=== PATIENT | female | born 1990 | race Hispanic/Latino ===

== ENCOUNTER 2024-02-28 22:53 | Emergency (ER) | payer OTHER ==
[~2024-02-28] VITALS: Ht 152.4 cm; Wt 68.0 kg
[2024-02-28 22:54] VITALS: BP 123/76; PULSE 96; RESP 16; TEMP 97.5
[2024-02-28 23:38] LABS: BASOPHILS # (AUTO) 0.04 K/uL (0.00-0.20); BASOPHILS % (AUTO) 0.3 % (0.0-5.0); EOSINOPHILS % (AUTO) 0.8 % (0.0-8.0); HEMATOCRIT 34.8 % (36-48); IMMATURE GRANULOCYTE ABSOLUTE 0.04 K/uL (0-1); LYMPHOCYTES # (AUTO) 3.5 K/uL (1.0-4.8); LYMPHOCYTES % (AUTO) 27.8 % (21.0-51.0); MEAN CORPUSCULAR HEMOGLOBIN 28.3 pg (27.0-33.0); MEAN CORPUSCULAR HGB CONC 31.3 g/dL (32.0-36.0); MEAN CORPUSCULAR VOLUME 90.4 fL (79-99); MONOCYTES # (AUTO) 0.8 K/uL (0.1-1.0); MONOCYTES % (AUTO) 6.5 % (3.0-13.0); NEUTROPHILS % (AUTO) 64.3 % (40.0-77.0); PLATELET COUNT (AUTO) 446 K/uL (130-400); RED BLOOD CELL COUNT(AUTO) 3.85 MIL/uL (4.00-5.50); RED CELL DISTRIBUTION WIDTH 12.6 % (11.0-15.5); WHITE BLOOD COUNT (AUTO) 12.5 K/uL (4.8-10.8)
[2024-02-28 23:46] LABS: POTASSIUM 3.3 mmol/L (3.5-5.1)
[2024-02-28 23:49] LABS: INR 0.95 (0.85-1.15); PROTHROMBIN TIME 10.3 SEC (9.6-11.6)
[2024-02-28 23:50] LABS: PARTIAL THROMBOPLASTIN TIME 25.5 SEC (26.3-35.5)
[2024-02-29] MEDS ORDERED: CEPH500B PO (00:08)
--- NOTE | 2024-02-29 00:08 | ERN ---
General Chief Complaint: OB<20 weeks gest. Stated Complaint: VAGINAL BLEEDING Time Seen by MD: 22:57 Source: patient History of Present Illness Initial Comments PATIENT IS A 33-YEAR-OLD FEMALE COMING IN TO BE EVALUATED FOR VAGINAL BLEED. PATIENT STATES THAT SHE WAS A AB0 TO WITH THIS . PATIENT WAS EVALUATED BY HER OBGYN IN HIS SCHEDULED FOR A D&C ON SUNDAY. PATIENT DECIDED TO COME IN TO BE FURTHER EVALUATED AFTER SHE PRESENTED WITH INCREASING ABDOMINAL CRAMPING. Allergies: Coded Allergies: No Known Drug Allergies (Unverified Allergy, Unknown, 02/27/24) Home Meds No Active Prescriptions or Reported Meds Past Medical History Past Medical History: No Pertinent History Past Surgical History: Cholecystectomy Female( History) LMP: Dec 30, 2023 : 5 Para: 3 Aborts: 2 ROS Dictation CONSTITUTIONAL: NO CHILLS, NO FEVER, NO WEAKNESS, NO DIAPHORESIS, NO MALAISE. HEAD/FACE: NO SIGNS OF TRAUMA. EENT: NO EYE PAIN, NO BLURRED VISION, NO TEARING, NO DOUBLE VISION, NO EAR PAIN, NO EAR DISCHARGE, NO NOSE PAIN, NO NASAL CONGESTION, NO THROAT PAIN, NO THROAT SWELLING, NO MOUTH PAIN. RESPIRATORY: NO COUGH, NO ORTHOPNEA, NO SOB, NO STRIDOR, NO WHEEZING. CARDIOVASCULAR: NO CHEST PAIN, NO EDEMA, NO PALPITATIONS, NO SYNCOPE. GASTROINTESTINAL/ABDOMINAL: ABDOMINAL PAIN, NO CONSTIPATION, NO DIARRHEA, NO NAUSEA, NO VOMITING. GENITOURINARY: ABNORMAL DISCHARGE, NO DYSURIA, NO FREQUENT URINATION, NO HEMATURIA. NO COMPLAINTS OF PAIN IN THE GENITALS. MUSCULOSKELETAL: NO BACK PAIN, NO GOUT, NO JOINT PAIN, NO JOINT SWELLING, NO MUSCLE PAIN, NO MUSCLE STIFFNESS, NO NECK PAIN. INTEGUMENTARY: NO CHANGE IN COLOR, NO CHANGE IN HAIR/NAILS, NO DRYNESS, NO LESION, NO LUMPS, NO RASH. NEUROLOGICAL/PSYCH: NO ANXIETY, NOT DEPRESSED, NO EMOTIONAL PROBLEM, NO HEADACHE, NO NUMBNESS, NO PRE-EXISTING DEFICIT, NO HISTORY OF SEIZURES, NO TREMORS, NO WEAKNESS. HEMATOLOGIC/LYMPHATIC: NOT ANEMIC, NO HISTORY OF BLOOD CLOTS, NO APPARENT BLEEDING, NO BRUISING, GLANDS NOT SWOLLEN. ALL SYSTEMS NEGATIVE, EXCEPT NOTED. Physical Exam Physical Exam Dictation VITAL SIGNS: REVIEWED. GENERAL APPEARANCE: ALERT, ORIENTED X3, NO ACUTE DISTRESS, OBESE. HEAD AND FACE: NON-TRAUMATIC. EYES: PERRL, PINK CONJUNCTIVAS, EYELID NO TRAUMA, ANTERIOR CHAMBER CLEAR. EARS: PINNAS INTACT AND NO SIGNS OF TRAUMA OR ERYTHEMA. EAR CANALS CLEAR AND NO DISCHARGE. TMS NO ERYTHEMA. NOSE: NO DISCHARGE, NO BLEEDING. OROPHARYNX: MOUTH NORMAL, TEETH NO CARIES, TONGUE PINK. PHARYNX CLEAR, NO ERYTHEMA. TONSILS NO EXUDATES, NO ABSCESSES NOTED. MUCOUS MEMBRANE MOIST. NECK: SUPPLE, NON-TENDER, NO THYROMEGALY, NO MASSES, NO JVD, NO BRUITS. BREAST: DEFERRED. CHEST: NO TENDERNESS, NO CREPITUS, NO PARADOXICAL MOVEMENT, NO RETRACTIONS. LUNGS: CLEAR, WELL-VENTILATED, SYMMETRIC, NO RALES, NO WHEEZING, NO RHONCHI, NO STRIDOR, GOOD BREATH SOUNDS BILATERALLY. HEART: REGULAR RATE, REGULAR RHYTHM, NO MURMUR, NO GALLOPS. VASCULAR: NO PERIPHERAL EDEMA. ABDOMEN: SOFT, POSITIVE BOWEL SOUNDS, NONDISTENDED, NO GUARDING, NONTENDER, NO R EBOUND, NO MASSES NO HEPATOMEGALY, NO SPLENOMEGALY, NO ASTUDILLO'S SIGN, NO HERNIAS. RECTAL: DEFERRED. GENITAL: DEFERRED. NEUROLOGICAL: NORMAL SPEECH, GROSS MOTOR FUNCTION INTACT, GROSS SENSORY FUNCTION INTACT. MUSCULOSKELETAL: NECK NONTENDER, FULL RANGE OF MOTION, BACK NONTENDER, FULL RANGE OF MOTION. EXTREMITIES: NONTENDER, FULL RANGE OF MOTION. SKIN: COLOR PINK, DRY, NO TURGOR, NO RASH, NO LACERATIONS, NO ABRASIONS, NO CONTUSIONS. LYMPHATICS: DEFERRED. Results Laboratory and Microbiology Lab and Micro Result Laboratory Tests Test 02/28/24 23:08 White Blood Count 12.5 K/uL (4.8-10.8) H Red Blood Count 3.85 MIL/uL (4.00-5.50) L Hemoglobin 10.9 g/dL (12.0-16.0) L Hematocrit 34.8 % (36-48) L Mean Corpuscular Volume 90.4 fL (79-99) Mean Corpuscular Hemoglobin 28.3 pg (27.0-33.0) Mean Corpuscular Hemoglobin Concent 31.3 g/dL (32.0-36.0) L Red Cell Distribution Width 12.6 % (11.0-15.5) Platelet Count 446 K/uL (130-400) H Mean Platelet Volume 9.3 fL (7.5-10.5) Immature Granulocyte % (Auto) 0.3 % (0-1) Neutrophils (%) (Auto) 64.3 % (40.0-77.0) Lymphocytes (%) (Auto) 27.8 % (21.0-51.0) Monocytes (%) (Auto) 6.5 % (3.0-13.0) Eosinophils (%) (Auto) 0.8 % (0.0-8.0) Basophils (%) (Auto) 0.3 % (0.0-5.0) Neutrophils # (Auto) 8.0 K/uL (1.8-7.7) H Lymphocytes # (Auto) 3.5 K/uL (1.0-4.8) Monocytes # (Auto) 0.8 K/uL (0.1-1.0) Eosinophils # (Auto) 0.10 K/uL (0.00-0.70) Basophils # (Auto) 0.04 K/uL (0.00-0.20) Absolute Immature Granulocyte (auto 0.04 K/uL (0-1) Nucleated Red Blood Cells 0.0 % (0.0-0.19) Prothrombin Time 10.3 SEC (9.6-11.6) Prothromb Time International Ratio 0.95 (0.85-1.15) Activated Partial Thromboplast Time 25.5 SEC (26.3-35.5) L Sodium Level 137 mmol/L (136-145) Potassium Level 3.3 mmol/L (3.5-5.1) L Chloride Level 101 mmol/L (101-111) Carbon Dioxide Level 29 mmol/L (21-32) Blood Urea Nitrogen 14 mg/dL (7-18) Creatinine 1.0 mg/dL (0.5-1.0) Glomerular Filtration Rate Calc 76 mL/min (>90) Random Glucose 94 mg/dL (70-105) Total Calcium 9.2 mg/dL (8.5-10.1) Human Chorionic Gonadotropin, Quant 879 mIU/mL (0-5) H Labs Reviewed?: Yes EKG/XRAY/US/CT/MRI Ultrasound Comment OB ULTRASOUND-NO IUP SEEN MDM MDM: DIFFERENTIAL DIAGNOSIS: MISCARRIAGE, VAGINAL BLEED, PATIENT IS A 33-YEAR-OLD FEMALE COMING IN TO BE EVALUATED FOR VAGINAL BLEED. PER PATIENT SHE WAS SCHEDULED FOR A D&C ON SUNDAY BUT DECIDED TO COME IN TO BE EVALUATED AFTER SHE HAD INCREASED CRAMPING. ULTRASOUND DID NOT SHOW AN IUP. PATIENT WILL BE DISCHARGED WITH A DIAGNOSIS OF MISCARRIAGE I ADVISED HER APPROPRIATE FOLLOW UP WITH OB FOR FURTHER EVALUATION. PATIENT WILL BE D ISCHARGED IN STABLE CONDITION. ED Course Orders Procedure Category Date Status Time Cbc With Differential LAB 02/28/24 Complete 22:57 Basic Metabolic Panel LAB 02/28/24 Complete 22:57 Hcg,Quantitative LAB 02/28/24 Complete 22:57 Pt And Ptt LAB 02/28/24 Complete 22:57 Us Ob <14 Weeks US 02/28/24 Taken 23:15 Vital Signs Date Time Temp Pulse Resp B/P (MAP) Pulse Ox O2 Delivery O2 Flow Rate FiO2 02/28/24 22:54 97.5 96 16 123/76 98 Room Air DX & DISP Disposition: Discharge Departure Impression: Primary Impression: Miscarriage Condition: Stable Scripts Cephalexin Monohydrate (Keflex) 500 Mg Cap 1 CAP PO TID for 10 Days, #30 CAP 0 Refills Prov: ELMER JUNIOR MD 02/29/24 Additional Instructions: FOLLOW-UP WITH PRIMARY CARE PROVIDER IN 1 TO 2 DAYS. TAKE MEDICATIONS DIRECTED HERE IN THE EMERGENCY ROOM. OKAY TO CONTINUE HOME MEDICATIONS UNLESS OTHERWISE DISCUSSED DURING YOUR VISIT IN THE EMERGENCY ROOM TODAY. RETURN TO YOUR NEAREST EMERGENCY ROOM IF SYMPTOMS WORSEN OR IF THERE IS NO IMPROVEMENT. CALL 911 IF YOU NEED IMMEDIATE ASSISTANCE. TAKE TYLENOL [id number] NEEDED AND IF NO CONTRAINDICATIONS ARE PRESENT. INCREASE ORAL HYDRATION. A WOUND CULTURE OR URINE CULTURE WAS ORDERED HERE IN THE EMERGENCY ROOM DEPARTMENT PLEASE FOLLOW-UP WITH PRIMARY CARE PROVIDER AND ADVISE THEM TO GET REPEAT PORTS FROM OUR FACILITY. IF YOU HAD ANY GENNA WRAP/SPLINTS THAT WERE APPLIED HERE, PLEASE DO NOT REMOVE THEM UNTIL YOU SEE YOUR PRIMARY CARE OR SPECIALTY. REFERRALS: Referrals: GEORGINA RHODES (PCP) Time of Disposition: 00:07 ELMER JUNIOR MD Feb 29, 2024 00:08
--- NOTE | 2024-02-29 01:08 | HMCIMG ---
US OB <14 WEEKS HISTORY: Abdominal pain COMPARISON: None TECHNIQUE: Obstetrical ultrasound study was performed. FINDINGS: The uterus measures 10.1 x 5.1 x 5.8 centimeter. Right ovary measures 2.8 x 1.9 x 2.7 centimeter. Left ovary measures 3.5 x 3.2 x 3.4 centimeter. There are bilateral ovarian cysts and follicles with the largest on the left measuring 2.5 cm. No evidence of intrauterine gestational sac is seen. In a patient with positive test, differential diagnosis would include early versus ectopic versus missed . Beta-hCG correlation is recommended. Clinical correlation is recommended. Endometrial thickness is 2 cm. No fluid is seen in the cul-de-sac. IMPRESSION: 1. No evidence of intrauterine gestational sac is seen. In a patient with positive test, differential diagnosis would include early versus ectopic versus missed . Beta-hCG correlation is recommended. Clinical correlation is recommended. Endometrial thickness is 2 cm.
== END 2024-02-29 00:31 | disposition home or self-care (01) ==
LOC: EDH 22:53
DX: O03.9 Complete or unspecified spontaneous abortion without complication (principal); R10.2 Pelvic and perineal pain; Z90.49 Acquired absence of other specified parts of digestive tract
CPT/HCPCS: 36415; 76801; 80048; 84702; 85025; 85610; 85730; 99284

== ENCOUNTER 2024-03-03 05:50 | Day surgery (SDC) | payer OTHER ==
[2024-02-27 14:58] LABS: BASOPHILS # (AUTO) 0.02 K/uL (0.00-0.20); BASOPHILS % (AUTO) 0.3 % (0.0-5.0); EOSINOPHILS # (AUTO) 0.08 K/uL (0.00-0.70); EOSINOPHILS % (AUTO) 1.1 % (0.0-8.0); HEMATOCRIT 35.3 % (36-48); IMMATURE GRANULOCYTE ABSOLUTE 0.02 K/uL (0-1); LYMPHOCYTES # (AUTO) 2.5 K/uL (1.0-4.8); MEAN CORPUSCULAR HEMOGLOBIN 27.8 pg (27.0-33.0); MEAN CORPUSCULAR HGB CONC 30.9 g/dL (32.0-36.0); MEAN CORPUSCULAR VOLUME 90.1 fL (79-99); MONOCYTES # (AUTO) 0.5 K/uL (0.1-1.0); MONOCYTES % (AUTO) 6.7 % (3.0-13.0); NEUTROPHILS # (AUTO) 4.2 K/uL (1.8-7.7); NEUTROPHILS % (AUTO) 57.6 % (40.0-77.0); PLATELET COUNT (AUTO) 452 K/uL (130-400); RED BLOOD CELL COUNT(AUTO) 3.92 MIL/uL (4.00-5.50); RED CELL DISTRIBUTION WIDTH 12.6 % (11.0-15.5); WHITE BLOOD COUNT (AUTO) 7.3 K/uL (4.8-10.8)
[2024-02-27 15:11] LABS: ALBUMIN 3.5 g/dL (3.5-5.0); BILIRUBIN,TOTAL 0.3 mg/dL (0.2-1.0); CREATININE 0.6 mg/dL (0.5-1.0); POTASSIUM 3.6 mmol/L (3.5-5.1); TOTAL PROTEIN, SERUM 7.7 g/dL (6.0-8.3)
[2024-02-27 15:43] VITALS: BP 115/67; PULSE 80; RESP 18; TEMP 97.9
[~2024-03-03] VITALS: Ht 152.4 cm; Wt 70.9 kg
[~2024-03-03 05:50] MED LIST: CEPH500B PO
[2024-03-03 06:25] VITALS: BP 115/79; PULSE 73; RESP 14; TEMP 97.5
[2024-03-03] MEDS: LACTATED RINGERS 1000ML 1,000 ML IV ONE (06:36)
[2024-03-03] MEDS: ceFAZolin SODIUM 2 GM VIAL ONE (06:36)
[2024-03-03] MEDS ORDERED: LIDOCAINE PF 100MG/5ML (2%) SYRINGE 5ML ONE (06:58)
[2024-03-03] MEDS ORDERED: dexaMETHasone SOD PHOSPHATE 10MG/ML 1ML VIAL ONE (06:58)
[2024-03-03] MEDS ORDERED: GLYCOPYRROLATE 0.2 MG/ML 5 ML VIAL ONE (06:59)
[2024-03-03] MEDS ORDERED: SUCCINYLCHOLINE CHLORIDE 20 MG/ML 10 ML VIAL ONE (06:59)
[2024-03-03] MEDS ORDERED: rocuRONium bROMide 10MG/1ML 5ML VL ONE (06:59)
[2024-03-03] MEDS ORDERED: proPOFol 10 MG/ML 20ML VIAL IV ONE (06:59)
[2024-03-03] MEDS ORDERED: ondanSETRON 4MG INJ ONE (06:59)
[2024-03-03] MEDS ORDERED: NEOSTIGMINE METHYLSULFATE 1MG/ML IV ONE (06:59)
[2024-03-03] MEDS ORDERED: FENTanyl CITRate PF 50 MCG/1 ML 2ML VIAL ONE (07:00)
[2024-03-03] MEDS ORDERED: MIDAZOLAM HCL 1 MG/ML 2ML VIAL ONE (07:00)
== END 2024-03-03 08:45 | disposition home or self-care (01) ==
LOC: DAH 05:50
PROVIDERS: ATTEND Obstetrics & Gynecology
DX: O02.1 Missed abortion (principal); Z90.49 Acquired absence of other specified parts of digestive tract; Z79.01 Long term (current) use of anticoagulants; Z79.899 Other long term (current) drug therapy; Z53.8 Procedure and treatment not carried out for other reasons
CPT/HCPCS: 86900 ×2; 80053; 84703; 85025; 86850 ×2; 86901 ×2; 36415 ×2; A6260; J7120; J1100; J0330; J2003; J2704; J0690; A4215; A4222; A4221; A4663; A4216; A4510; A4223 ×2; A4600; J2250; J2405; J2710; J3010; J3490

== ENCOUNTER 2024-05-01 20:07 | Emergency (ER) | payer OTHER ==
[~2024-05-01] VITALS: Ht 152.4 cm; Wt 73.0 kg
--- NOTE | 2024-05-01 20:21 | ERN ---
ED Note History of Present Illness Stated Complaint: HEADACHES X 5 DAYS Chief Complaint: Headache Time Seen by MD: 20:09 Dictation: PATIENT IS A 34-YEAR-OLD FEMALE HERE WITH BILATERAL FRONTAL HEADACHE THAT SHE DESCRIBES PRESSURE, ACHY FOR FIVE DAYS. NO FEVER NO CHILLS NO NAUSEA VOMITING. STATES SHE HAD A VIRAL INFECTION LAST WEEK WAS TREATED BY . SHE STATES EVERY SHE HAS NOT BEEN ABLE TO GET RID OF THE HEADACHE. NO NECK PAIN. NO RASH. Allergies: Coded Allergies: No Known Drug Allergies (Unverified Allergy, Unknown, 02/27/24) Home Meds No Active Prescriptions or Reported Meds Past Medical History Past Medical History: No Pertinent History Surgical History: Cholecystectomy History: Not Applicable : 5 Para: 3 Aborts: 2 RN Note Reviewed/Agreed w/PFSH: Yes Review of System Dictation CONSTITUTIONAL: NEGATIVE EXCEPT FOR HPI HEAD/FACE: NEGATIVE EXCEPT FOR HPI EENT: NEGATIVE EXCEPT FOR HPI BILATERAL FRONTAL SINUS HEADACHE RESPIRATORY: NEGATIVE EXCEPT FOR HPI GASTROINTESTINAL/ABDOMINAL: NEGATIVE EXCEPT FOR HPI GENITOURINARY: NEGATIVE EXCEPT FOR HPI MUSCULOSKELETAL: NEGATIVE EXCEPT FOR HPI INTEGUMENTARY: NEGATIVE EXCEPT FOR HPI NEUROLOGICAL/PSYCH: NEGATIVE EXCEPT FOR HPI HEMATOLOGIC/LYMPHATIC: NEGATIVE EXCEPT FOR HPI ALL SYSTEMS NEGATIVE, EXCEPT NOTED ABOVE. 13 POINT REVIEW OF SYSTEMS ASSESSED AND ALL NEGATIVE EXCEPT FOR ABOVE. Initial Vital Sign VS Vital Signs Date Time Temp Pulse Resp B/P (MAP) Pulse Ox O2 Delivery O2 Flow Rate FiO2 05/01/ 20:18 99.0 90 20 131/85 99 Room Air Physical Exam Dictation VITAL SIGNS REVIEWED GENERAL APPEARANCE: ALERT, ORIENTED X 3, NO ACUTE DISTRESS, WELL DEVELOPED, NOURISHED. HEAD AND FACE: NON-TRAUMATIC. MODERATE BILATERAL FRONTAL TENDERNESS WITH PALPATION GREATER ON THE RIGHT EYES: PERRL, PINK CONJUNCTIVAS, EYELID NO TRAUMA, ANTERIOR CHAMBER WITH ARCUS SENILIS. EARS: PINNAS INTACT AND NO SIGNS OF TRAUMA OR ERYTHEMA EAR CANALS CLEAR AND NO DISCHARGE TM NO ERYTHEMA NOSE: NO DISCHARGE, NO BLEEDING. OROPHARYNX: MOUTH NORMAL, TONGUE PINK, PHARYNX CLEAR,NO ERYTHEMA, TONSILS NO EXUDATES, NO ABSCESSES NOTED, MUCOUS MEMBRANE MOIST NECK: SUPPLE, NON-TENDER, NO THYROMEGALY, NO MASSES, NO JVD, NO BRUITS BREAST:DEFERRED CHEST:NO TENDERNESS, NO CREPITUS, NO PARADOXICAL MOVEMENT, NO RETRACTIONS LUNGS:CLEAR, WELL-VENTILATED, SYMMETRIC, NO RALES, NO WHEEZING, NO RHONCHI, NO STRIDOR, GOOD BREATH SOUNDS BILATERALLY HEART: REGULAR RATE, REGULAR RHYTHM, NO MURMUR, NO GALLOPS VASCULAR: NO PERIPHERAL EDEMA, ABDOMEN: SOFT, POSITIVE BOWEL SOUNDS, NONDISTENDED, NO GUARDING, NONTENDER, NO REBOUND, NO MASSES NO HEPATOMEGALY, NO SPLENOMEGALY, NO ASTUDILLO'S SIGN, NO HERNIAS. RECTAL: DEFERRED GENITAL: DEFERRED NEUROLOGICAL: NORMAL SPEECH, MOTOR FUNCTION INTACT, SENSORY FUNCTION INTACT MUSCULOSKELETAL: NECK NONTENDER, FULL RANGE OF MOTION, BACK NONTENDER, FULL RANGE OF MOTION, EXTREMITIES: NONTENDER, FULL RANGE OF MOTION SKIN: COLOR PINK, DRY, NO TURGOR, NO RASH, NO LACERATIONS, NO ABRASIONS, NO CONTUSIONS. LYMPHATIC: DEFERRED Results (Laboratory/Radiology) Labs Reviewed?: Yes ED Course ED Course Orders Procedure Category Date Status Time Ketorolac 60mg/2ml PHA 05/01/24 Complete (Toradol 60mg/2ml) 20:30 Dexamethasone 4mg/Ml PHA 05/01/24 Complete 1ml Vial (Dexametha 20:30 Current Medications Medications (Trade) Dose Ordered Sig/Nancy Route PRN Reason Start Time Stop Time Status Last Admin Dose Admin Dexamethasone Sodium Phosphate (dexaMETHasone 4MG/ML 1ML VIAL) 8 mg ONCE ONCE IM 05/01/24 20:30 05/01/24 20:31 DC Ketorolac Tromethamine (toRADol 60MG/ 2ML) 60 mg ONCE ONCE IM 05/01/24 20:30 05/01/24 20:31 DC Vital Signs Date Time Temp Pulse Resp B/P (MAP) Pulse Ox O2 Delivery O2 Flow Rate FiO2 05/01/24 20:18 99.0 90 20 131/85 99 Room Air 2055 patient discharged home after pain is being relieved with Decadron and ketorolac. She will be discharged home with prednisone and ibuprofen for the next three days told to see her primary care doctor for follow up. Medical Decision Making MDM Medical discharge making based on empiric treatment for sinus headache. Discharged home with ibuprofen and prednisone Told to see her primary care doctor in 1-2 days DX & DISP Disposition: Discharge Departure Impression: Primary Impression: Sinus headache Condition: Stable Scripts Prednisone (Prednisone) 20 Mg Tablet 40 MG PO DAILY for 3 Days, #6 TAB Prov: RAHEEM FALK MANAGER STRATEGY 05/01/24 Ibuprofen (Ibuprofen 800 mg Tab) 800 Mg Tab 800 MG PO Q8H PRN for fever or pain, #30 TAB 0 Refills Prov: RAHEEM FALK NP 05/01/24 Additional Instructions: Follow-up with primary care provider in 1 to 2 days. Take medications as directed here in the emergency room. Okay to continue home medications unless otherwise discussed during your visit in the emergency room today. Return to your nearest emergency room if symptoms worsen or if there is no improvement. Call 911 if you need immediate assistance. Take Tylenol or Motrin [id number] as needed and if no contraindications are present. Increase oral hydration. A wound culture or urine culture was ordered here in the emergency room department please follow-up with primary care provider and advise them to get repeat ports from our facility. If you had any Alpesh wrap/splints that were applied here, please do not remove them until you see your primary care or specialty. Take ibuprofen every8 hours with food for the next two days. Take prednisone the next three days with food. Increase your water intake and see your primary care doctor for follow up. Referrals: GEORGINA RHODES (PCP) Time of Disposition: 20:56 I have reviewed the case, and I agree with, Diagnosis and Plan RAHEEM FALK NP May 01, 2024 20:21
[2024-05-01] MEDS ORDERED: PRED20TA3 PO (20:57)
[2024-05-01] MEDS ORDERED: IBUP-2077 PO (20:57)
[2024-05-01] MEDS: dexaMETHasone SOD PHOSPHATE 4 MG/ML 1ML VIAL IM ONE (21:43)
[2024-05-01] MEDS: ketOROlac 60 MG VIAL (30MG/ML) IM ONE (21:43)
[2024-05-01 21:46] VITALS: BP 125/80; PULSE 90; RESP 16; TEMP 98.9; O2SAT 98
== END 2024-05-01 21:52 | disposition home or self-care (01) ==
LOC: EDH 20:07
DX: R51.9 Headache, unspecified (principal); Z90.49 Acquired absence of other specified parts of digestive tract
CPT/HCPCS: 99284; 96372 ×2; J1100; J1885

== ENCOUNTER 2024-05-05 10:19 | Emergency (ER) | payer OTHER ==
[~2024-05-05] VITALS: Ht 152.4 cm; Wt 73.0 kg
[~2024-05-05 10:19] MED LIST changes: -CEPH500B PO; +IBUP-2077 PO; +PRED20TA3 PO
--- NOTE | 2024-05-05 10:43 | ERN ---
ED Note History of Present Illness Stated Complaint: RETURNING PT WITH CONTINUED PAIN Chief Complaint: Headache Time Seen by MD: 10:24 Dictation: PATIENT IS A 34-YEAR-OLD FEMALE COMING IN TODAY AND BEING SEEN FOR THE 2ND TIME FOR A RIGHT RETRO-ORBITAL AND TEMPORAL HEADACHE SHE HAS HAD FOR 7-8 DAYS. NO NAUSEA VOMITING NO FEVER NO CHILLS NO RASH. SHE WAS SEEN ON THE April, TREATED A SINUS HEADACHE WITH PREDNISONE AND IBUPROFEN. SHE STATES IT WAS BETTER AND NOW IS CAME BACK AGAIN. SHE WAS ABLE TO DRIVE HERSELF TO THE HOSPITAL TODAY FROM WORK, STATES HER APPOINTMENT WITH HER DOCTOR IS ON THE . Allergies: Coded Allergies: No Known Drug Allergies (Unverified Allergy, Unknown, 02/27/24) Home Meds Active Scripts Butalb/Acetaminophen/Caffeine (Esgic 50-325-40 mg Tablet) 50 Mg-325 Mg-40 Mg Tablet, 2 EACH PO Q4HPRN PRN for Headache, #20 TAB 0 Refills Prov:RAHEEM FALK FINANCIAL MANAGER 05/05/24 Prednisone (Prednisone) 20 Mg Tablet, 40 MG PO DAILY for 3 Days, #6 TAB Prov:RAHEEM FALK FINANCIAL MANAGER 05/01/24 Ibuprofen (Ibuprofen 800 mg Tab) 800 Mg Tab, 800 MG PO Q8H PRN for fever or pain, #30 TAB 0 Refills Prov:RAHEEM FALK FINANCIAL MANAGER 05/01/24 Past Medical History Past Medical History: No Pertinent History Surgical History: None History: Not Applicable : 5 Para: 3 Aborts: 2 RN Note Reviewed/Agreed w/PFSH: Yes Review of System Dictation CONSTITUTIONAL: NEGATIVE EXCEPT FOR HPI HEAD/FACE: NEGATIVE EXCEPT FOR HPI EENT: NEGATIVE EXCEPT FOR HPI RESPIRATORY: NEGATIVE EXCEPT FOR HPI GASTROINTESTINAL/ABDOMINAL: NEGATIVE EXCEPT FOR HPI GENITOURINARY: NEGATIVE EXCEPT FOR HPI MUSCULOSKELETAL: NEGATIVE EXCEPT FOR HPI INTEGUMENTARY: NEGATIVE EXCEPT FOR HPI NEUROLOGICAL/PSYCH: NEGATIVE EXCEPT FOR HPI RIGHT RETRO-ORBITAL AND TEMPORAL HEADACHE HEMATOLOGIC/LYMPHATIC: NEGATIVE EXCEPT FOR HPI ALL SYSTEMS NEGATIVE, EXCEPT NOTED ABOVE. 13 POINT REVIEW OF SYSTEMS ASSESSED AND ALL NEGATIVE EXCEPT FOR ABOVE. Initial Vital Sign VS Vital Signs Date Time Temp Pulse Resp B/P (MAP) Pulse Ox O2 Delivery O2 Flow Rate FiO2 05/05/24 10:41 97.9 76 16 126/91 100 Room Air 0 2/3/25 12:24 21 Physical Exam Dictation VITAL SIGNS REVIEWED GENERAL APPEARANCE: ALERT, ORIENTED X 3, MODERATE ACUTE DISTRESS, WELL DEVELOPED, NOURISHED. HEAD AND FACE: NON-TRAUMATIC. EYES: PERRL, PINK CONJUNCTIVAS, EYELID NO TRAUMA, ANTERIOR CHAMBER WITH ARCUS SENILIS. EOMS INTACT EARS: PINNAS INTACT AND NO SIGNS OF TRAUMA OR ERYTHEMA EAR CANALS CLEAR AND NO DISCHARGE TM NO ERYTHEMA NOSE: NO DISCHARGE, NO BLEEDING. OROPHARYNX: MOUTH NORMAL, TONGUE PINK, PHARYNX CLEAR,NO ERYTHEMA, TONSILS NO EXUDATES, NO ABSCESSES NOTED, MUCOUS MEMBRANE MOIST NECK: SUPPLE, NON-TENDER, NO THYROMEGALY, NO MASSES, NO JVD, NO BRUITS BREAST:DEFERRED CHEST:NO TENDERNESS, NO CREPITUS, NO PARADOXICAL MOVEMENT, NO RETRACTIONS LUNGS:CLEAR, WELL-VENTILATED, SYMMETRIC, NO RALES, NO WHEEZING, NO RHONCHI, NO STRIDOR, GOOD BREATH SOUNDS BILATERALLY HEART: REGULAR RATE, REGULAR RHYTHM, NO MURMUR, NO GALLOPS VASCULAR: NO PERIPHERAL EDEMA, ABDOMEN: SOFT, POSITIVE BOWEL SOUNDS, NONDISTENDED, NO GUARDING, NONTENDER, NO REBOUND, NO MASSES NO HEPATOMEGALY, NO SPLENOMEGALY, NO ASTUDILLO'S SIGN, NO HERNIAS. RECTAL: DEFERRED GENITAL: DEFERRED NEUROLOGICAL: NORMAL SPEECH, MOTOR FUNCTION INTACT, SENSORY FUNCTION INTACT NIH IS 0 MUSCULOSKELETAL: NECK NONTENDER, FULL RANGE OF MOTION, BACK NONTENDER, FULL RANGE OF MOTION, EXTREMITIES: NONTENDER, FULL RANGE OF MOTION SKIN: COLOR PINK, DRY, NO TURGOR, NO RASH, NO LACERATIONS, NO ABRASIONS, NO CONTUSIONS. LYMPHATIC: DEFERRED Results (Laboratory/Radiology) Laboratory/Radiology Laboratory Tests Test 05/05/24 11:19 White Blood Count 6.9 K/uL (4.8-10.8) Red Blood Count 3.97 MIL/uL (4.00-5.50) L Hemoglobin 11.0 g/dL (12.0-16.0) L Hematocrit 35.1 % (36-48) L Mean Corpuscular Volume 88.4 fL (79-99) Mean Corpuscular Hemoglobin 27.7 pg (27.0-33.0) Mean Corpuscular Hemoglobin Concent 31.3 g/dL (32.0-36.0) L Red Cell Distribution Width 14.5 % (11.0-15.5) Platelet Count 504 K/uL (130-400) H Mean Platelet Volume 9.1 fL (7.5-10.5) Immature Granulocyte % (Auto) 0.4 % (0-1) Neutrophils (%) (Auto) 85.2 % (40.0-77.0) H Lymphocytes (%) (Auto) 12.1 % (21.0-51.0) L Monocytes (%) (Auto) 2.2 % (3.0-13.0) L Eosinophils (%) (Auto) 0.0 % (0.0-8.0) Basophils (%) (Auto) 0.1 % (0.0-5.0) Neutrophils # (Auto) 5.9 K/uL (1.8-7.7) Lymphocytes # (Auto) 0.8 K/uL (1.0-4.8) L Monocytes # (Auto) 0.2 K/uL (0.1-1.0) Eosinophils # (Auto) 0.00 K/uL (0.00-0.70) Basophils # (Auto) 0.01 K/uL (0.00-0.20) Absolute Immature Granulocyte (auto 0.03 K/uL (0-1) Nucleated Red Blood Cells 0.0 % (0.0-0.19) Sodium Level 136 mmol/L (136-145) Potassium Level 4.2 mmol/L (3.5-5.1) Chloride Level 102 mmol/L (101-111) Carbon Dioxide Level 31 mmol/L (21-32) Blood Urea Nitrogen 20 mg/dL (7-18) H Creatinine 0.7 mg/dL (0.5-1.0) Glomerular Filtration Rate Calc 116 mL/min (>90) Random Glucose 97 mg/dL (70-105) Total Calcium 8.9 mg/dL (8.5-10.1) Serum Test, Qualitative NEGATIVE (NEGATIVE) Comparison: None CT Dose Index (CTDI): 57.33 mGy Dose Length Product (DLP): 956.79 total mGy-cm Findings: The examination is unremarkable. Maldonado-white matter junction is preserved. No intra or extra axial lesions or fluid collections are seen. Specifically, maldonado and white matter are normal in signal characteristics with normal caliber of ventricles and periventricular cisterns with no evidence of intra or or extra-axial hemorrhage, lacunar infarct, or major territorial infarct, mass, or other abnormality. There are no infarcts. There are no hemorrhages. Periventricular white matter locations are preserved. The orbital contents and structures of the posterior fossa are intact. Impression: Normal CT of the head. This study was performed using dose reduction techniques to include automated exposure control and/or adjustment of the mA and/or kV according to patient size. Labs Reviewed?: Yes ED Course ED Course Orders Procedure Category Date Status Time Cbc With Differential LAB 05/05/24 Complete 10:40 Ketorolac PHA 05/05/24 Complete Tromethamine 30mg/Ml 11:00 Basic Metabolic Panel LAB 05/05/24 Complete 10:40 Ct Head/Brain W/O CT 05/05/24 Resulted Contrast 10:40 0.9%Nacl 1000ml (Ns PHA 05/05/24 Complete 1000ml) 11:00 Morphine 2mg Syg PHA 05/05/24 Complete (Morphine 2mg Syg) 11:00 Ondansetron 4mg Inj PHA 05/05/24 Complete (Zofran 4mg Inj) 11:00 Testing, LAB 05/05/24 Complete Serum Hcg 10:48 Current Medications Medications (Trade) Dose Ordered Sig/Nancy Route PRN Reason Start Time Stop Time Status Last Admin Dose Admin Ketorolac Tromethamine (toRADol) 30 mg ONCE ONCE IVP 05/05/24 11:00 05/05/24 11:01 DC 05/05/24 13:34 Morphine Sulfate (morPHINE 2MG SYG) 2 mg ONCE ONCE IVP 05/05/24 11:00 05/05/24 11:01 DC 05/05/24 13:35 Ondansetron HCl (zoFRAN 4MG INJ) 4 mg ONCE ONCE IVP 05/05/24 11:00 05/05/24 11:01 DC 05/05/24 13:34 Sodium Chloride 1,000 ml @ 0 mls/hr ONCE ONCE IV 05/05/24 11:00 05/05/24 11:01 DC 05/05/24 13:34 Vital Signs Date Time Temp Pulse Resp B/P (MAP) Pulse Ox O2 Delivery O2 Flow Rate FiO2 05/05/24 12:24 97.9 76 16 126/98 100 Room Air* 0 21 05/05/24 10:41 97.9 76 16 126/91 100 Room Air 0 1412, patient has negative labs and CT of the head discharged home neurologically intact with S check, told to see her primary care doctor Medical Decision Making MDM Medical discharge making based on CT of the head and basic labs for chronic right retro-orbital and temporal headache. Labs negative, CT negative Patient states she feels better after Treatment Discharged home with no work and we will be prescribed Fioricet to take until she is cleared by her doctor back. DX & DISP Disposition: Discharge Departure Impression: Primary Impression: Acute tension headache Condition: Stable Scripts Butalb/Acetaminophen/Caffeine (Esgic 50-325-40 mg Tablet) 50 Mg-325 Mg-40 Mg Tablet 2 EACH PO Q4HPRN PRN for Headache, #20 TAB 0 Refills Prov: RAHEEM FALK NP 05/05/24 Additional Instructions: Follow-up with primary care provider in 1 to 2 days. Take medications as directed here in the emergency room. Okay to continue home medications unless otherwise discussed during your visit in the emergency room today. Return to your nearest emergency room if symptoms worsen or if there is no improvement. Call 911 if you need immediate assistance. Take Tylenol or Motrin [id number] as needed and if no contraindications are present. Increase oral hydration. A wound culture or urine culture was ordered here in the emerg ency room department please follow-up with primary care provider and advise them to get repeat ports from our facility. If you had any Alpesh wrap/splints that were applied here, please do not remove them until you see your primary care or specialty. Take medications as directed for your headache. No work until cleared by your primary care doctor. Referrals: EVELIN JORDAN (PCP) Time of Disposition: 14:15 I have reviewed the case, and I agree with, Diagnosis and Plan I performed the substantive portion of the visit. I have reviewed and personally made and approve the management plan that is documented in the notes by myself or the SANDHYA. I acknowledge full responsibility for the patient's management plan. RAHEEM FALK NP May 05, 2024 10:43 RANDI GORDON MD May 05, 2024 17:10
[2024-05-05 11:31] LABS: BASOPHILS # (AUTO) 0.01 K/uL (0.00-0.20); BASOPHILS % (AUTO) 0.1 % (0.0-5.0); HEMATOCRIT 35.1 % (36-48); IMMATURE GRANULOCYTE ABSOLUTE 0.03 K/uL (0-1); LYMPHOCYTES # (AUTO) 0.8 K/uL (1.0-4.8); LYMPHOCYTES % (AUTO) 12.1 % (21.0-51.0); MEAN CORPUSCULAR HEMOGLOBIN 27.7 pg (27.0-33.0); MEAN CORPUSCULAR HGB CONC 31.3 g/dL (32.0-36.0); MEAN CORPUSCULAR VOLUME 88.4 fL (79-99); MONOCYTES # (AUTO) 0.2 K/uL (0.1-1.0); MONOCYTES % (AUTO) 2.2 % (3.0-13.0); NEUTROPHILS # (AUTO) 5.9 K/uL (1.8-7.7); NEUTROPHILS % (AUTO) 85.2 % (40.0-77.0); PLATELET COUNT (AUTO) 504 K/uL (130-400); RED BLOOD CELL COUNT(AUTO) 3.97 MIL/uL (4.00-5.50); RED CELL DISTRIBUTION WIDTH 14.5 % (11.0-15.5); WHITE BLOOD COUNT (AUTO) 6.9 K/uL (4.8-10.8)
[2024-05-05 11:40] LABS: CREATININE 0.7 mg/dL (0.5-1.0); POTASSIUM 4.2 mmol/L (3.5-5.1)
[2024-05-05 12:24] VITALS: BP 126/98; PULSE 76; RESP 16; TEMP 97.9; O2SAT 100
[2024-05-05] MEDS: 0.9%NACL 1000ML 1,000 ML IV ONE (13:34)
[2024-05-05] MEDS: ondanSETRON 4MG INJ IVP ONE (13:34)
[2024-05-05] MEDS: ketOROlac 30MG VIAL (30MG/ML) IVP ONE (13:34)
[2024-05-05] MEDS: morPHINE 2 MG SYG IVP ONE (13:35)
--- NOTE | 2024-05-05 13:55 | HMCIMG ---
Exam Type: CT HEAD/BRAIN W/O CONTRAST Clinical Information: RIGHT RETRO-ORBITAL AND TEMPORAL HEADACHE SHE HAS HAD FOR 7-8 DAYS. Comparison: None CT Dose Index (CTDI): 57.33 mGy Dose Length Product (DLP): 956.79 total mGy-cm Findings: The examination is unremarkable. Maldonado-white matter junction is preserved. No intra or extra axial lesions or fluid collections are seen. Specifically, maldonado and white matter are normal in signal characteristics with normal caliber of ventricles and periventricular cisterns with no evidence of intra or or extra-axial hemorrhage, lacunar infarct, or major territorial infarct, mass, or other abnormality. There are no infarcts. There are no hemorrhages. Periventricular white matter locations are preserved. The orbital contents and structures of the posterior fossa are intact. Impression: Normal CT of the head. This study was performed using dose reduction techniques to include automated exposure control and/or adjustment of the mA and/or kV according to patient size.
[2024-05-05] MEDS ORDERED: BUTA-271 PO (14:16)
== END 2024-05-05 14:22 | disposition home or self-care (01) ==
LOC: EDH 10:19
DX: G44.209 Tension-type headache, unspecified, not intractable (principal); Z79.52 Long term (current) use of systemic steroids; Z79.899 Other long term (current) drug therapy
CPT/HCPCS: 99285; 96374; 70450; 96375; 80048; 84703; 85025; 36415; J1885; J2270; J7030; J2405

== ENCOUNTER 2024-10-12 00:28 | Emergency (ER) | payer BC, OTHER ==
[~2024-10-12] VITALS: Ht 157.5 cm; Wt 75.3 kg
[~2024-10-12 00:28] MED LIST changes: +BUTA-271 PO
--- NOTE | 2024-10-12 00:32 | NUR ---
UA CUP PROVIDED
--- NOTE | 2024-10-12 00:35 | NUR ---
UA COLLECTED AND SENT
--- NOTE | 2024-10-12 02:18 | ERN ---
General Chief Complaint: Headache Stated Complaint: HEADACHE Time Seen by MD: 00:41 Time Seen by Midlevel: 00:41 Source: patient History of Present Illness Initial Comments The patient is a 34-year-old female with no significant past medical history presenting to the emergency department for evaluation of a frontal headache. She states that this morning she received news that her was having an affair with her and since then has been crying all day. She was seeking pain co ntrol at this time given that her Tylenol and Motrin that she was taking at home has not given her relief. She denies any blurred vision, double vision, focal weakness, or any other symptoms at this time. Allergies: Coded Allergies: No Known Drug Allergies (Unverified Allergy, Unknown, 02/27/24) Home Meds Active Scripts Butalb/Acetaminophen/Caffeine (Esgic 50-325-40 mg Tablet) 50 Mg-325 Mg-40 Mg Tablet, 2 EACH PO Q4HPRN PRN for Headache, #20 TAB 0 Refills Prov:RAHEEM FALK CRIME ANALYST 05/05/24 Prednisone (Prednisone) 20 Mg Tablet, 40 MG PO DAILY for 3 Days, #6 TAB Prov:RAHEEM FALK CRIME ANALYST 05/01/24 Ibuprofen (Ibuprofen 800 mg Tab) 800 Mg Tab, 800 MG PO Q8H PRN for fever or pain, #30 TAB 0 Refills Prov:RAHEEM FALK CRIME ANALYST 05/01/24 Past Medical History Past Medical History: No Pertinent History Past Surgical History: Cholecystectomy Female( History) History: Not Applicable LMP: Sep 27, 2024 : 5 Para: 3 Aborts: 2 ROS Dictation CONSTITUTIONAL: Negative except for HPI HEAD/FACE: Negative except for HPI EENT: Negative except for HPI RESPIRATORY: Negative except for HPI GASTROINTESTINAL/ABDOMINAL: Negative except for HPI GENITOURINARY: Negative except for HPI MUSCULOSKELETAL: Negative except for HPI INTEGUMENTARY: Negative except for HPI NEUROLOGICAL/PSYCH: Negative except for HPI HEMATOLOGIC/LYMPHATIC: Negative except for HPI All Systems Negative, Except as noted above. 13 point review of systems assessed and all negative except for above. Physical Exam Physical Exam Dictation Vital Signs reviewed General Appearance: Alert, oriented x 3, no acute distress, well developed, nourished. Head and Face: non-traumatic. Eyes: PERRL, pink conjunctivas, eyelid no trauma, anterior chamber with arcus senilis. Ears: Pinnas intact and no signs of trauma or erythema ear canals clear and no discharge TM no erythema Nose: No discharge, no bleeding. Oropharynx: Mouth normal, tongue pink, pharynx clear,no erythema, tonsils no exudates, no abscesses noted, mucous membrane moist Neck: Supple, non-tender, no thyromegaly, no masses, no JVD, no bruits Breast:Deferred Chest:No tenderness, no crepitus, no paradoxical movement, no retractions Lungs:Clear, well-ventilated, symmetric, no rales, no wheezing, no rhonchi, no stridor, good breath sounds bilaterally Heart: Regular rate, regular rhythm, no murmur, no gallops Vascular: no peripheral edema, Abdomen: Soft, positive bowel sounds, nondistended, no guarding, nontender, no rebound, no masses no hepatomegaly, no splenomegaly, no Larson's sign, no hernias. Rectal: Deferred Genital: Deferred Neurological: Normal speech, motor function intact, sensory function intact Musculoskeletal: Neck nontender, full range of motion, back nontender, full range of motion, Extremities: nontender, full range of motion Skin: Color pink, dry, no turgor, no rash, no lacerations, no abrasions, no contusions. Lymphatic: Deferred MDM MDM: Differential diagnosis: Emotional stress reaction, anxiety reaction, tension headache There are no social concerns with this patient. Prescription drug management Prescriptions will include: None Medical management and examination interpretation discussions were had by me with other qualified healthcare professionals as indicated for the patient's care. ED Course Orders Procedure Category Date Status Time Ketorolac PHA 10/12/24 Complete Tromethamine 30mg/Ml 01:30 Diphenhydramine Hcl PHA 10/12/24 Complete (Benadryl Inj) 01:30 Current Medications Medications (Trade) Dose Ordered Sig/Nancy Route PRN Reason Start Time Stop Time Status Last Admin Dose Admin Diphenhydramine HCl (BENAdryl INJ) 50 mg ONCE ONCE IM 10/12/24 01:30 10/12/24 01:31 DC 10/12/24 01:28 Ketorolac Tromethamine (toRADol) 30 mg ONCE ONCE IM 10/12/24 01:30 10/12/24 01:31 DC 10/12/24 01:28 Vital Signs Date Time Temp Pulse Resp B/P (MAP) Pulse Ox O2 Delivery O2 Flow Rate FiO2 10/12/24 02:21 98.2 76 18 130/79 98 Room Air* 0 21 10/12/24 00:30 97.9 86 20 138/94 98 Room Air DX & DISP Disposition: Discharge Departure Impression: Primary Impression: Acute tension headache Condition: Stable Referrals: EVELIN JORDAN Time of Disposition: 02:18 I have reviewed the case, and I agree with, Diagnosis and Plan I performed the substantive portion of the visit. I have reviewed and personally made and approve the management plan that is documented in the note by myself or the SANDHYA. I acknowledge for responsibility for the patient's management plan. JASON WOODRUFF Oct 12, 2024 02:18
[2024-10-12 02:21] VITALS: BP 130/79; PULSE 76; RESP 18; TEMP 98.3; O2SAT 98
== END 2024-10-12 02:27 | disposition home or self-care (01) ==
LOC: EDH 00:28
DX: G44.209 Tension-type headache, unspecified, not intractable (principal); Z79.52 Long term (current) use of systemic steroids; Z90.49 Acquired absence of other specified parts of digestive tract
CPT/HCPCS: 99284; 96372 ×2; J1885; J1200

== ENCOUNTER 2025-01-18 23:47 | Emergency (ER) | payer BC ==
[~2025-01-18] VITALS: Ht 152.4 cm; Wt 69.9 kg
[2025-01-19 00:31] LABS: ADD UA MICROSCOPIC YES; APPEARANCE,URINE CLEAR (CLEAR); GLUCOSE, URINE (UA) NEGATIVE (NEGATIVE); LEUKOCYTE ESTERASE ,URINE NEGATIVE Leu/uL (NEGATIVE); NITRATE,URINE NEGATIVE (NEGATIVE); OCCULT BLOOD,URINE SMALL (NEGATIVE)
[2025-01-19 00:33] LABS: SQUAMOUS EPITHELIAL CELL,UR RARE /HPF (0-2)
[2025-01-19 00:33] LABS: IMMATURE GRANULOCYTE ABSOLUTE 0.02 K/uL (0-1); NUCLEATED RED BLOOD CELLS 0.0 % (0.0-0.19); PLATELET COUNT (AUTO) 406 K/uL (130-400); RED BLOOD CELL COUNT(AUTO) 3.75 MIL/uL (4.00-5.50); RED CELL DISTRIBUTION WIDTH 13.6 % (11.0-15.5); WHITE BLOOD COUNT (AUTO) 9.4 K/uL (4.8-10.8)
--- NOTE | 2025-01-19 01:01 | ERN ---
General Chief Complaint: OB<20 weeks gest. Stated Complaint: VAGINAL BLEEDING Time Seen by MD: 23:50 Source: patient History of Present Illness Initial Comments 34-year-old healthy female who comes in knowing that she is and noted some bleeding on her uterus in his concerned about having a miscarriage. She thinks she is 7-8 weeks Allergies: Coded Allergies: No Known Drug Allergies (Unverified Allergy, Unknown, 02/27/24) Home Meds Active Scripts Butalb/Acetaminophen/Caffeine (Esgic 50-325-40 mg Tablet) 50 Mg-325 Mg-40 Mg Tablet, 2 EACH PO Q4HPRN PRN for Headache, #20 TAB 0 Refills Prov:RAHEEM FALK MAILING MACHINE ASSISTANT 05/05/24 Prednisone (Prednisone) 20 Mg Tablet, 40 MG PO DAILY for 3 Days, #6 TAB Prov:RAHEEM FALK MAILING MACHINE ASSISTANT 05/01/24 Ibuprofen (Ibuprofen 800 mg Tab) 800 Mg Tab, 800 MG PO Q8H PRN for fever or pain, #30 TAB 0 Refills Prov:RAHEEM FALKP 05/01/24 Past Medical History Past Medical History: No Pertinent History Past Surgical History: Cholecystectomy Female( History) History: Not Applicable : 5 Para: 3 Aborts: 1 Constitutional: (-) chills, (-) diaphoresis, (-) fever, (-) malaise, (-) weakness, (-) other documentation EENTM: (-) eye pain, (-) blurred vision, (-) tearing, (-) double vision, (-) ear pain, (-) ear discharge, (-) nose pain, (-) nose congestion, (-) throat pain, (-) Throat swelling, (-) mouth pain, (-) tooth pain, (-) mouth swelling, (-) other documentation Respiratory: (-) cough, (-) orthopnea, (-) short of breath, (-) stridor, (-) wheezing, (-) other documentation Cardiovascular: (-) chest pain, (-) edema, (-) palpitations, (-) syncope, (-) dyspnea on exertion, (-) other documentation Genitourinary: (+) vaginal discharge, (+) vaginal bleeding Musculoskeletal: (-) Neck pain, (-) back pain, (-) Flank Pain, (-) joint pain, (-) joint swelling, (-) muscle pain, (-) muscle stiffness, (-) gout, (-) other documentation Skin: (-) laceration, (-) contusion, (-) abrasion, (-) abscess, (-) rash, (-) change in color, (-) change in hair, (-) change in nails, (-) diaphoresis, (-) dryness, (-) other documentation Physical Exam Physical Exam Dictation Physical exam is benign with clear lungs regular rate and rhythm soft stomach moving all extremities Results Laboratory and Microbiology Lab and Micro Result Laboratory Tests Test 01/19/25 00:10 01/19/25 00:15 Urine Color LIGHT-YELLOW (YELLOW) Urine Appearance CLEAR (CLEAR) Urine pH 6.0 (5.0-8.0) Urine Specific Parker 1.023 (1.001-1.031) Urine Protein NEGATIVE mg/dL (NEGATIVE) Urine Glucose (UA) NEGATIVE mg/dL (NEGATIVE) Urine Ketones NEGATIVE mg/dL (NEGATIVE) Urine Occult Blood SMALL (NEGATIVE) H Urine Nitrate NEGATIVE (NEGATIVE) Urine Bilirubin NEGATIVE mg/dL (NEGATIVE) Urine Urobilinogen 0.2 mg/dL (0.2-1.0) Urine Leukocyte Esterase NEGATIVE Cheri/uL Urine RBC 2-5 /HPF (0-1) H Urine WBC 0-1 /HPF (0-1) Urine Squamous Epithelial Cells RARE /HPF (0-2) Urine Bacteria RARE /HPF (None Seen) White Blood Count 9.4 K/uL (4.8-10.8) Red Blood Count 3.75 MIL/uL (4.00-5.50) L Hemoglobin 10.8 g/dL (12.0-16.0) L Hematocrit 32.3 % (36-48) L Mean Corpuscular Volume 86.1 fL (79-99) Mean Corpuscular Hemoglobin 28.8 pg (27.0-33.0) Mean Corpuscular Hemoglobin Concent 33.4 g/dL (32.0-36.0) Red Cell Distribution Width 13.6 % (11.0-15.5) Platelet Count 406 K/uL (130-400) H Mean Platelet Volume 9.5 fL (7.5-10.5) Immature Granulocyte % (Auto) 0.2 % (0-1) Neutrophils (%) (Auto) 66.9 % (40.0-77.0) Lymphocytes (%) (Auto) 25.6 % (21.0-51.0) Monocytes (%) (Auto) 6.1 % (3.0-13.0) Eosinophils (%) (Auto) 0.9 % (0.0-8.0) Basophils (%) (Auto) 0.3 % (0.0-5.0) Neutrophils # (Auto) 6.3 K/uL (1.8-7.7) Lymphocytes # (Auto) 2.4 K/uL (1.0-4.8) Monocytes # (Auto) 0.6 K/uL (0.1-1.0) Eosinophils # (Auto) 0.08 K/uL (0.00-0.70) Basophils # (Auto) 0.03 K/uL (0.00-0.20) Absolute Immature Granulocyte (auto 0.02 K/uL (0-1) Nucleated Red Blood Cells 0.0 % (0.0-0.19) Human Chorionic Gonadotropin, Quant 21519 mIU/mL (0-5) H MDM Patient's quantitative HCG levels are consistent with the expected age of her baby. Ultrasound showed a viable fetus. No obvious source of the bleeding no placenta previa. ED Course Orders Procedure Category Date Status Time Cbc With Differential LAB 01/18/25 Complete 23:59 Urinalysis Profile LAB 01/18/25 Complete 23:59 Hcg,Quantitative LAB 01/18/25 Complete 23:59 Us Ob Transvaginal US 01/19/25 Resulted 00:18 Vital Signs Date Time Temp Pulse Resp B/P (MAP) Pulse Ox O2 Delivery O2 Flow Rate FiO2 01/19/25 00:05 97.9 85 15 118/54 99 Room Air* 0 21 01/18/25 23:49 97.9 85 18 120/57 99 Room Air DX & DISP Disposition: Discharge Departure Impression: Primary Impression: Vaginal bleeding affecting early Condition: Stable Additional Instructions: Your baby is healthy please continue to see your application operations engineer as you progress through your . Referrals: SELF,REFERRAL (PCP) ELIZABETH BARNARD MD Jan 19, 2025 01:01
--- NOTE | 2025-01-19 01:51 | HMCIMG ---
EXAM: US Obstetrical, Complete <14 weeks CLINICAL HISTORY: Uterine bleeding TECHNIQUE: Transabdominal and transvaginal imaging of the maternal pelvis and a <14 week gestation with image documentation. COMPARISON: None provided. FINDINGS: The uterus measures 9.8 x 5.3 x 5.2 cm. There is an intrauterine gestation with the mean sac diameter of 1 cm, which corresponds with a gestational age of 7 weeks and 1 day. The CRL measures 1.2 cm, which corresponds with a gestational age of 5 weeks and 6 days. The heart rate measures 141 bpm. The yolk sac is visualized. The right ovary measures 2.9 x 1.6 x 1.7 cm. The left ovary measures 2.6 x 1.4 x 2.6 cm. No free fluid in the cul-de-sac. Multiple nabothian cysts in the cervix, the larger cysts measure 1.2 x 0.7 cm and 1.1 x 0.7 cm. IMPRESSION: Single viable intrauterine with a gestational age of 5 weeks and 6 days as per the CRL criteria. The heart rate measures 141 bpm. Nabothian cervical cysts. No acute process. /Gatito
[2025-01-19 01:54] VITALS: BP 121/61; PULSE 81; RESP 15; TEMP 97.9; O2SAT 99
== END 2025-01-19 02:01 | disposition home or self-care (01) ==
LOC: EDH 23:47
DX: O20.9 Hemorrhage in early pregnancy, unspecified (principal); Z79.52 Long term (current) use of systemic steroids; Z90.49 Acquired absence of other specified parts of digestive tract; Z3A.01 Less than 8 weeks gestation of pregnancy
CPT/HCPCS: 36415; 76817; 81001; 84702; 85025; 99284